=== PATIENT | male | born 1990 ===

== ENCOUNTER 2018-07-14 21:13 | Emergency (ER) | payer SELFPAY ==
[2018-07-14] MEDS ORDERED: Lidocaine 2% MPF (5 ml) Inj ONE (23:05)
--- NOTE | 2018-07-14 23:53 | C.PDOC ---
History Of Present Illness 28 year old male presents with pain and swelling to the penile area. Patient states today while in the shower he retracted his foreskin and was unable to pull foreskin forward. Patient states it became swollen and began bleeding after attempting to manipulate it. Denies dysuria, penile discharge, testicular pain, testicular swelling, or trauma to the area. Time Seen by Provider: 07/14/18 21:48 Chief Complaint (Nursing): Male Genitourinary History Per: Patient History/Exam Limitations: no limitations Onset/Duration Of Symptoms: Hrs Current Symptoms Are (Timing): Still Present Quality Of Discomfort: Unable To Describe Associated Symptoms: denies: Urinary Symptoms, Other (Testicular pain or swelling, Penile discharge) Alleviating Factors: None Recent travel outside of the [place]: No Past Medical History Reviewed: Historical Data, Nursing Documentation, Vital Signs Vital Signs: Last Vital Signs Temp 98.6 F 07/14/18 21:25 Pulse 76 07/14/18 21:25 Resp 20 07/14/18 21:25 BP 111/70 07/14/18 21:25 Pulse Ox 97 07/14/18 21:25 Family History: States: No Known Family Hx - Social History Hx Alcohol Use: Yes Hx Substance Use: No - Immunization History Hx Tetanus Toxoid Vaccination: Yes Hx Influenza Vaccination: No Hx Pneumococcal Vaccination: No Review Of Systems Genitourinary: Positive for: Penile Pain, Other (Penile swelling). Negative for: Dysuria, Penile Discharge, Scrotal Pain Physical Exam - Physical Exam Appears: Non-toxic Skin: Warm Head: Atraumatic, Normacephalic Eye(s): bilateral: Normal Inspection Gastrointestinal/Abdominal: Normal Exam, No Tenderness Male Genital: No Testicular Tenderness, No Testicular Swelling, No Scrotal Swelling, No Circumcised, Other (Uncircumcised, mild dried blood on the glans, foreskin at the base of the glans retracted and swollen) Neurological/Psych: Oriented x3, Normal Speech, Normal Cognition Gait: Steady ED Course And Treatment O2 Sat by Pulse Oximetry: 97 (Room air) Pulse Ox Interpretation: Normal Progress Note: Case discussed with Dr. Tilley, urology oncall, who advised to wrap penis in coban compression material and he will come see pain in the ER today pending urology evaluation. Pt was seen by Dr Petty- Urologist who was able to pull foreskin forward. Minimal blood resolved after the procedure. Pt was able to urinate with no complications, VSS. Pt will follow up with PMD/ . Return precautions discussed. 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 - Scribe Statement The provider has reviewed the documentation as recorded by the Scribedgar [place] All medical record entries made by the Kaeib[place]gar were at my direction and per sonally dictated by me. I have reviewed the chart and agree that the record accurately reflects my personal performance of the history, physical exam, medical decision making, and the department course for this patient. I have also personally directed, reviewed, and agree with the discharge instructions and disposition.
[2018-07-15 00:14] VITALS: BP 118/72; PULSE 70; RESP 18; TEMP 98
[2018-07-15 00:52] VITALS: O2SAT 97
== END 2018-07-15 00:14 | disposition home or self-care (01) ==
LOC: C.ER 21:13
DX: N47.2 Paraphimosis (principal)